=== PATIENT | female | born 1990 | race Caucasian/White ===

== ENCOUNTER 2019-01-01 13:48 | Outpatient (CLI) | payer OTHER | END 2019-01-01 13:49 | disposition home or self-care (01) | LOC: DTY/OP 13:48 | PROVIDERS: ATTEND Specialist | DX: Z01.818 Encounter for other preprocedural examination (principal); E66.01 Morbid (severe) obesity due to excess calories | CPT/HCPCS: 97802 ==

== ENCOUNTER 2019-03-04 19:30 | Outpatient (CLI) | payer OTHER | END 2019-03-04 19:31 | disposition home or self-care (01) | LOC: SLEEPLAB 19:30 | DX: G47.33 Obstructive sleep apnea (adult) (pediatric) (principal); R06.83 Snoring; G47.00 Insomnia, unspecified; G47.10 Hypersomnia, unspecified | CPT/HCPCS: 95810 ==

== ENCOUNTER 2019-04-16 12:24 | Outpatient (CLI) | payer OTHER ==
[2019-04-16 13:54] LABS: BHCG - Serum Negative (NEGATIVE); Pregs Control Background? CLEAR/WHITE (CLR/WHITE); Pregs Control Bar Appear? YES (CONTROL BAR)
== END 2019-04-16 12:25 | disposition home or self-care (01) ==
LOC: LABBT 12:24
PROVIDERS: ATTEND Specialist
DX: Z01.812 Encounter for preprocedural laboratory examination (principal); E66.01 Morbid (severe) obesity due to excess calories
CPT/HCPCS: 84703

== ENCOUNTER 2019-04-18 14:00 | Inpatient (IN) | payer OTHER ==
--- NOTE | 2019-04-18 12:57 | HP ---
ADDENDUM: This is an addendum to a history and physical, number is [id number], dictated 09/13/2018. Lalitha Russ was seen in office on 09/13/2018 initiating bariatric evaluation. Plan is for laparoscopic Byron-en-Y gastric bypass. She has attended our bariatric seminar, visited our dietitian as well as psychologist, thought to be a good candidate with good expectations and committed postop to follow up to ensure optimal results. Comorbidities include elevated cholesterol, chronic pain, headaches, GERD. She notes that almost she has lost with nonoperative weight loss program of 16 pounds and current weight initially seen in August was 290 pounds, BMI 54. She has lost 20 pounds in her preoperative assessment. She has met all other requirements of the program including psychology evaluation. The patient has upper GI, EKG, cardiac clearance and labs, all of which were normal. She has been adherent with the preoperative preparation. She understands risks of infection, bleeding, and reoperation, and consents. PAST MEDICAL HISTORY: Anxiety, elevated cholesterol, chronic pain, headaches, bladder incontinence occasionally, obesity, GERD, sciatica, sleep apnea. PAST SURGICAL HISTORY: Lap cholecystectomy at 26 years of age. FAMILY HISTORY: Noncontributory. SOCIAL HISTORY: Tobacco cessation in 2016, half pack a day prior to that, alcohol rarely. REVIEW OF SYSTEMS: Ten-point noncontributory. PHYSICAL EXAMINATION: VITAL SIGNS: Weight 264 pounds, height 5 feet, BMI 51, preoperatively 9.9% of weight loss. LUNGS: Clear to auscultation. NEUROLOGIC: Intact, no deficit. CARDIAC: Regular rate and rhythm without murmur or gallop. ABDOMEN: Soft, obese, nontender. No hernias. EXTREMITIES: Unremarkable. No edema. Good palpable pulses. LYMPH: No lymphadenopathy in neck, axilla, or groins. ASSESSMENT: Morbid obesity, sleep apnea, reflux. PLAN: Laparoscopic Byron-en-Y gastric bypass. She understands risks, benefits, and consents. She does report that she has benign positional vertigo and wants to try to minimize her chances of waking up supine, wants to wake up with her head elevated. She will discuss it with her Anesthesia. Job ID: [id number]
[2019-04-24] MEDS ORDERED: Bupivacaine/Epinephrine 0.25% 30 ML VIAL ONE (06:46)
[2019-04-24] MEDS ORDERED: Fentanyl 250 MCG/5 ML VIAL ONE (06:58)
[2019-04-24] MEDS ORDERED: Heparin 5,000 UNITS/ML VIAL ONE (07:21)
[2019-04-24] MEDS ORDERED: Ketorolac Tromethamine 30 MG/ML VIAL ONE ×2 (07:21→13:19)
[2019-04-24] MEDS ORDERED: cefOXitin 2 GM VIAL ONE (07:30)
[2019-04-24] MEDS ORDERED: Scopolamine 1.5 mg/72 hour Patch ONE (07:30)
[2019-04-24] MEDS ORDERED: Sodium Chloride 0.9% 100 ML ONE (07:30)
[2019-04-24] MEDS ORDERED: hydrALAZINE 20 MG/ML VIAL SLOW IVP PRN (10:13)
[2019-04-24] MEDS ORDERED: Hydrocodone-Acetamin 15 ML UDCUP PO PRN (10:13)
[2019-04-24] MEDS ORDERED: Morphine 4 MG/ML VIAL SLOW IVP PRN (10:13)
[2019-04-24] MEDS ORDERED: Ondansetron PF 4 MG/2 ML Vial IVP PRN (10:13)
[2019-04-24] MEDS ORDERED: diphenhydrAMINE 50 MG/ML VIAL IVP PRN (10:13)
[2019-04-24] MEDS ORDERED: Lorazepam 2 MG/ML VIAL SLOW IVP PRN (10:18)
[2019-04-24] MEDS ORDERED: Morphine 2 MG/ML SYRINGE SLOW IVP PRN (10:27)
[2019-04-24] MEDS ORDERED: Promethazine HCl 25 MG/ML VIAL ONE (11:07)
[2019-04-24] MEDS ORDERED: Fentanyl 100 MCG/2 ML VIAL ONE ×3 (11:07→13:19)
[2019-04-24] MEDS ORDERED: Meperidine HCl/PF 25 MG/ML VIAL ONE (12:06)
[2019-04-24] MEDS ORDERED: Morphine 4 MG/ML VIAL ONE (12:53)
[2019-04-24] MEDS: Acetaminophen 1,000 MG in Premix Bag 1 BAG IVPB SCH ×3 (15:14→22:38)
[2019-04-24] MEDS: Ketorolac Tromethamine 30 MG/ML VIAL IVP SCH ×2 (15:14→17:47)
[2019-04-24] MEDS ORDERED: Succinylcholine Chloride 20 MG/ML 10 ml SYRINGE FS ONE (16:21)
[2019-04-24] MEDS ORDERED: Lidocaine 1% PF 5 ML VIAL ONE (16:21)
[2019-04-24] MEDS ORDERED: Dexamethasone 20 MG/5 ML VIAL ONE (16:21)
[2019-04-24] MEDS ORDERED: Glycopyrrolate 0.2 MG/ML 5 ML SYRINGE ONE (16:21)
[2019-04-24] MEDS ORDERED: Ondansetron PF 4 MG/2 ML Vial ONE (16:21)
[2019-04-24] MEDS ORDERED: PROPOFOL 200 MG/20 ML VIAL ONE (16:21)
[2019-04-24] MEDS ORDERED: Vecuronium 10 MG VIAL ONE (16:21)
[2019-04-24 16:55] VITALS: BMI 53.1
[2019-04-24] MEDS ORDERED: diphenhydrAMINE 25 MG CAP PO PRN (16:58)
[2019-04-24] MEDS ORDERED: fentaNYL Citrate/PF 2,000 MCG in Sodium Chloride 0.9% 60 ML IV PRN (16:58)
[2019-04-24] MEDS ORDERED: Promethazine HCl 25 MG/ML VIAL IM PRN (16:58)
[2019-04-24] MEDS ORDERED: Zolpidem Tartrate 5 MG TAB PO PRN (16:58)
[2019-04-24] MEDS ORDERED: diphenhydrAMINE 50 MG/ML VIAL IM/IV PRN (16:58)
[2019-04-24] MEDS ORDERED: Naloxone HCl 0.4 mg/ml Vial IV PRN (16:58)
--- NOTE | 2019-04-24 17:07 | OP ---
DATE OF PROCEDURE: 04/24/2019 PREOPERATIVE DIAGNOSES: Morbid obesity, 280 pounds, 54 BMI, elevated cholesterol, gastroesophageal reflux disease, foreign body in chest. MEDICATIONS: 1. Amitriptyline. 2. Cyclobenzaprine. 3. . POSTOPERATIVE DIAGNOSES: Morbid obesity, 280 pounds, 54 BMI, elevated cholesterol, gastroesophageal reflux disease, foreign body in chest. PROCEDURES PERFORMED: Laparoscopic Byron-en-Y gastric bypass, 150 cm Byron limb antecolic, 25 mm EEA stapler gastrojejunostomy. Gastrojejunostomy anastomosis checked under water without leak. Removal of foreign body chest through a 2 cm incision later closure. ANESTHESIA: General, local 0.25% Marcaine with epinephrine, 60 mL. TREE FALLER: Dr. Lees. DESCRIPTION OF PROCEDURE: The patient was taken to the operating room, where under general anesthesia, abdomen was prepared with ChloraPrep and draped in routine fashion. Local anesthetic was infiltrated in the skin and subcutaneous tissue about all port sites. Supraumbilical incision was made. Pneumoperitoneum to 15 mmHg obtained with a Veress needle, replaced with a 5 port. Video laparoscope inserted. Left and right midclavicular upper abdominal incision was made, and a 15 port was placed on the left and a 12 port was placed on the right. Bilateral far lateral stab incision was made, and 5 port was placed. During the procedure, a second 5 port placed in the left lower mid abdomen laterally. A subxiphoid incision made, and Valeria liver tractor was placed and reflected in the left lobe of the liver anteriorly, held in place with Mik's arms. Omentum was split toward the transverse colon using the LigaSure. It was reflected cephalad. Ligament of Treitz identified an approximately 60 cm from the ligament of Treitz. Small bowel adjacent to mesentery divided with 2 fires of the FRIDA 60 load stapler. Staple line disrupted. Hemostasis was gained with cautery. Byron limb devascularized about 4 cm. 150 cm Byron limb identified, measured and jejunojejunostomy form with a single fire of the 60 mm white load stapler after creating enterotomies in the biliary and Byron limb. The common enterotomy was closed with 2 fires of the FRIDA white load stapler. Mesenteric defect was closed with [id number] sutures of 3-0 Vicryl closing the mesenteric defect. Byron limb was then measured out and reflected cephalad. The patient was placed in reverse Trendelenburg. The angle of His laterally was cleared of peritoneal attachments. The 4 cm pouch identified along the lesser curvature and along the lesser curvature, the lesser sac entered dissected free using the LigaSure for hemostasis. All instrumentations were removed from the stomach. A single fire of the blue load stapler horizontally crossed the gastric pouch fired. The defect made in the stomach just inferiorly and laterally, and a 25 mm EEA anvil placed laparoscopically, directed into the gastric pouch and then the opening made just anterior to the initially fired blue load staple line in gastric pouch using the cutting current hook cautery. Once this was performed, a 5-mm band passer was advanced out of this defect adjacent to the staple line, and sutures removed and passes removed and anvil brought out through the stomach, well oriented and well position. Gastrotomy was closed with 2 fires of the FRIDA blue load stapler. The stomach pouch was then partition vertically left lateral to angle of His, serial fires of the blue load stapler. Once this was completed, stomach was completely divided. The Byron limb defect was created and the post removed from the anvil and the 25 mm EEA stapler placed with a 15 mm port site left midclavicular and advanced into the Byron limb. Antimesenteric for the post was advanced, visualized laparoscopically and then mated to the anvil in the stomach. These were approximated, well oriented and fired and then staple removed noting intact donuts. The vascularized Byron limb segment was then removed with 2 fires of the FRIDA white load stapler, removing the small segment of bowel. The gastrojejunostomy anastomosis reinforced with 3 interrupted Lembert sutures of 3-0 Vicryl seromuscular between the jejunum and stomach, left posterolateral, right posterolateral, and right anterolateral. Anastomosis was checked under water and noted to be intact without leak under water. Irrigant evacuated. There was some bleeding near the Byron limb staple line and mesentery controlled with clips and Uma. [id number] suture of 0 Vicryl was placed at the 15 mm port site, visualized laparoscopically with a GraNee needle. Abdominal cavity was irrigated. Valeria liver tractor was removed. All instruments were removed. All skin incisions were approximated with a subdermal 4-0 Monocryl and [place] glue applied. Chest was prepared with ChloraPrep, draped in routine fashion. Incision was made elliptically excising the foreign body from the piercing, closing the wound with 3-0 Monocryl, 4-0 Monocryl, and Dermabond. Local anesthetic was infiltrated. The patient tolerated the procedure well. Job ID: [id number]
[2019-04-24] MEDS: D5 1/2 NS w/20 mEq KCL 1,000 ML IV SCH ×2 (17:46→21:15)
[2019-04-24 19:31] LABS: #Lymphocytes 1.2 thou/uL (1.20-3.40); #Monocytes 0.4 thou/uL (0.11-0.59); #Neutrophils 9.6 thou/uL (1.40-6.50); %Lymphocytes 10.6 % (21.0-51.0); %Monocytes 3.2 % (0.0-10.0); %Neutrophils 86.2 % (42.0-75.0); Hemoglobin 12.1 g/dL (12.0-16.0); Mean Corpuscular HGB CONC 34.9 g/dL (32.0-36.0); Mean Platelet Volume 6.3 fL (7.4-10.4); Platelet Count 243 thou/uL (130-400); RBC Distribution Width 12.4 % (11.5-14.5); Red Blood Cell (RBC) Count 4.03 mill/uL (4.20-5.40); White Blood Cell (WBC) Count 11.1 thou/uL (4.8-10.8)
[2019-04-24] MEDS ORDERED: Enoxaparin Sodium 40 MG/0.4 ML SYRINGE SC SCH (21:00)
[2019-04-24] MEDS: Ondansetron PF 4 MG/2 ML Vial IVP PRN (22:41)
[2019-04-25] MEDS: Ketorolac Tromethamine 30 MG/ML VIAL IVP SCH ×4 (00:07→12:30)
[2019-04-25] MEDS: D5 1/2 NS w/20 mEq KCL 1,000 ML IV SCH ×2 (02:09→12:26)
[2019-04-25] MEDS: Acetaminophen 1,000 MG in Premix Bag 1 BAG IVPB SCH (04:45)
[2019-04-25] MEDS: Ondansetron PF 4 MG/2 ML Vial IVP PRN (04:45)
[2019-04-25 05:09] LABS: #Lymphocytes 2.6 thou/uL (1.20-3.40); #Monocytes 0.6 thou/uL (0.11-0.59); #Neutrophils 7.7 thou/uL (1.40-6.50); %Basophils 0.1 % (0.0-1.0); %Eosinophils 0.3 % (0.0-10.0); %Lymphocytes 23.4 % (21.0-51.0); %Monocytes 5.6 % (0.0-10.0); %Neutrophils 70.5 % (42.0-75.0); Hemoglobin 12.1 g/dL (12.0-16.0); Mean Corpuscular HGB CONC 32.9 g/dL (32.0-36.0); Mean Corpuscular Hemoglobin 28.6 pg (27.0-31.0); Mean Corpuscular Volume 86.9 fL (78.0-98.0); Mean Platelet Volume 6.5 fL (7.4-10.4); Platelet Count 301 thou/uL (130-400); RBC Distribution Width 12.6 % (11.5-14.5); Red Blood Cell (RBC) Count 4.24 mill/uL (4.20-5.40); White Blood Cell (WBC) Count 10.9 thou/uL (4.8-10.8)
[2019-04-25 05:27] LABS: Anion Gap 10 mmol/L (10-20); BUN (Urea Nitrogen) 6 mg/dL (7.0-18.7); Calc. Creatinine Clearance 232 mL/min (70-130); Calcium 8.7 mg/dL (7.8-10.44); Carbon Dioxide 23 mmol/L (22-29); Chloride 105 mmol/L (98-107); Estimated GFR-MDRD Greater than 90; Glucose 106 mg/dL (70-105); Potassium 3.4 mmol/L (3.5-5.1); Sodium 135 mmol/L (136-145)
[2019-04-25] MEDS ORDERED: Pantoprazole 40 MG VIAL IVP SCH (09:00)
[2019-04-25] MEDS ORDERED: Acetaminophen 650 MG/20.3 ML UDCUP PO PRN (10:20)
[2019-04-25] MEDS ORDERED: Hydrocodone-Acetamin 15 ML UDCUP PO PRN (10:24)
[2019-04-25] MEDS ORDERED: Aspirin/APAP/Caffeine Tab (Excedrin Migraine) PO SCH (10:30)
[2019-04-25] MEDS ORDERED: Lorazepam 1 MG TAB PO PRN (11:11)
[2019-04-25] MEDS ORDERED: Citalopram 20 MG TAB PO SCH (11:15)
[2019-04-25] MEDS: Lorazepam 2 MG/ML VIAL SLOW IVP SCH ×2 (11:22→12:20)
[2019-04-25 11:59] VITALS: BP 111/65; TEMP 97.8
--- NOTE | 2019-04-25 22:50 | DIS ---
DATE OF ADMISSION: 04/24/2019 DATE OF DISCHARGE: 04/25/2019 HOSPITAL COURSE: Lalitha Russ is a 29-year-old female with morbid obesity, 264 pounds, BMI 51, history of significant reflux, anxiety and depression, headaches, migraines, sciatica, sleep apnea. She has been through our bariatric program protocol, evaluated by dietitian, cardiac clearance, Cheryl. Given that, the patient quit smoking in 2015. On the day of surgery, she underwent under general anesthesia laparoscopic Byron-en-Y gastric bypass, 150 cm Byron limb antecolic, 25 mm EEA stapler. On presentation preoperatively, her heart rate was 100 to 105 due to her anxiety. Postoperatively, her pain required a MACHINE PECAN PICKER. She tolerated ice chips initially, then liquids this morning. This morning, her white count is 10.9, hemoglobin 12. Basic metabolic profile normal. MACHINE PECAN PICKER discontinued this morning. Analgesia controlled with Lortab Elixir. She is tolerating her bariatric clear liquids. PHYSICAL EXAMINATION: LUNGS: Clear to auscultation. CARDIAC: Regular rate and rhythm. Slight tachycardia. She presented preoperatively. ABDOMEN: Soft, nontender. Good bowel sounds. Surgical wounds look good. DISCHARGE INSTRUCTIONS: At this point, she is being discharged home. She is given Lortab Elixir to take as needed . She is to resume her home medications, Flexeril, Celexa, and amitriptyline. She will avoid NSAIDs. She will see me in office in 1 to 2 weeks per appointment. She is encouraged to be ambulatory. There is no lifting restriction. She will follow the bariatric diet advancement protocol, will be on bariatric liquids for 2 weeks, pureed for 2 weeks, and soft diet after that. Job ID: [id number]
[2019-04-26] MEDS ORDERED: Citalopram 20 MG TAB PO SCH (09:00)
== END 2019-04-25 13:59 | disposition home or self-care (01) | DRG 621 ==
LOC: SURG A 04-24 05:55 → SJJU 04-24 13:06
PROVIDERS: ADMIT Specialist; ATTEND Specialist
PROC: 0D164ZA Bypass Stomach to Jejunum, Percutaneous Endoscopic Approach (ICD-10-PCS; principal; 2019-04-24)
PROC: 0HC5XZZ Extirpation of Matter from Chest Skin, External Approach (ICD-10-PCS; 2019-04-24)
DX: E66.01 Morbid (severe) obesity due to excess calories (principal); F41.9 Anxiety disorder, unspecified; K21.9 Gastro-esophageal reflux disease without esophagitis; E78.00 Pure hypercholesterolemia, unspecified; G47.00 Insomnia, unspecified; F17.220 Nicotine dependence, chewing tobacco, uncomplicated; Z68.43 Body mass index [BMI] 50.0-59.9, adult; G43.909 Migraine, unspecified, not intractable, without status migrainosus; F32.9 Major depressive disorder, single episode, unspecified; S20.359A Superficial foreign body of unspecified front wall of thorax, initial encounter; X58.XXXA Exposure to other specified factors, initial encounter
CPT/HCPCS: 36415; 80048; 85025; 86850; 86900; 86901; 94760; C9113; J0131; J0694; J1100; J1644; J1650; J1885; J2001; J2060; J2175; J2270; J2405; J2550; J2704; J3010; J3490

== ENCOUNTER 2019-05-01 08:56 | Emergency (ER) | payer OTHER ==
[2019-05-01 10:16] LABS: #Eosinphils 0.1 thou/uL (0.0-0.7); #Lymphocytes 2.3 thou/uL (1.20-3.40); #Monocytes 0.3 thou/uL (0.11-0.59); #Neutrophils 3.7 thou/uL (1.40-6.50); %Basophils 0.5 % (0.0-1.0); %Eosinophils 2.3 % (0.0-10.0); %Lymphocytes 35.7 % (21.0-51.0); %Monocytes 5.1 % (0.0-10.0); %Neutrophils 56.4 % (42.0-75.0); Hemoglobin 12.9 g/dL (12.0-16.0); Mean Corpuscular HGB CONC 34.7 g/dL (32.0-36.0); Mean Corpuscular Hemoglobin 29.9 pg (27.0-31.0); Mean Corpuscular Volume 86.1 fL (78.0-98.0); Platelet Count 353 thou/uL (130-400); RBC Distribution Width 12.3 % (11.5-14.5); White Blood Cell (WBC) Count 6.5 thou/uL (4.8-10.8)
[2019-05-01 10:18] LABS: BHCG - Serum Negative (NEGATIVE); Pregs Control Background? CLEAR/WHITE (CLR/WHITE); Pregs Control Bar Appear? YES (CONTROL BAR)
[2019-05-01 10:33] LABS: ALT (SGPT) 25 U/L (8-55); AST (SGOT) 25 U/L (5-34); Albumin 4.2 g/dL (3.5-5.0); Alkaline Phosphatase 71 U/L (40-150); Anion Gap 13 mmol/L (10-20); BUN (Urea Nitrogen) 10 mg/dL (7.0-18.7); Bilirubin, Total 0.5 mg/dL (0.2-1.2); Calc. Creatinine Clearance 0 mL/min (70-130); Calcium 9.7 mg/dL (7.8-10.44); Carbon Dioxide 25 mmol/L (22-29); Chloride 103 mmol/L (98-107); Estimated GFR-MDRD Greater than 90; Globulin 3.8 g/dL (2.4-3.5); Glucose 87 mg/dL (70-105); Lipase 36 U/L (8-78); Potassium 3.7 mmol/L (3.5-5.1); Sodium 137 mmol/L (136-145)
--- NOTE | 2019-05-01 10:53 | CT ---
CT Abdomen Pelvis W Con: 05/01/2019 9:19 AM CLINICAL INFORMATION: Abdominal pain status post gastric bypass surgery last Monday COMPARISON: 08/30/2018 TECHNIQUE: Multiple contiguous axial images were obtained and a CT of the abdomen and pelvis with IV contrast. C oronal reformats were performed. FINDINGS: Lower Chest: within normal limits. Abdomen: Liver: within normal limits. Bile Ducts: Normal caliber. Gallbladder: Status post cystectomy. Pancreas: within normal limits. Spleen: within normal limits. Adrenals: within normal limits. Kidneys: within normal limits. Pelvis: Reproductive Organs: IUD seen in the uterus. The patient has a genital piercing. Ureters: within normal limits. Bladder: within normal limits. Peritoneum: No ascites or free air, no fluid collection. Bowel: Normal caliber. Postsurgical changes from gastric bypass are seen. Mesentery and Retroperitoneum: No enlarged mesenteric or retroperitoneal lymph nodes. Vessels: Normal. Abdominal Wall: Stranding is seen in the anterior abdominal wall from recent surgery. Bones: Within normal limits IMPRESSION: Recent postsurgical changes without acute intra-abdominal /pelvic abnormality.
[2019-05-01 11:13] LABS: Bacteria/HPF None Seen HPF (None Seen); Bilirubin Negative (Negative); Blood, Urine 3+ (Negative); Clarity Clear (Clear); Glucose, Urine (Dipstick) Normal (Negative); Leukocyte Negative Leu/uL (Negative); Nitrite Negative (Negative); Protein, Urine (Dipstick) 20 mg/dL (Neg-Trace); RBC/HPF Greater than 50 HPF (0-3); Squamous Epithelial 0-3 HPF (0-3); Urobilinogen 3 mg/dL (Less than 2); WBC/HPF 0-3 HPF (0-3)
[2019-05-01] MEDS ORDERED: ISOVUE-370 76%-LOCM 1 ML ONE (16:38)
== END 2019-05-01 12:18 | disposition home or self-care (01) ==
LOC: ERS 08:56
DX: R10.12 Left upper quadrant pain (principal); G43.909 Migraine, unspecified, not intractable, without status migrainosus; F41.9 Anxiety disorder, unspecified; Z79.899 Other long term (current) drug therapy; Z98.890 Other specified postprocedural states
CPT/HCPCS: 74177; 80053; 81003; 81015; 83690; 84703; 85025; Q9966

== ENCOUNTER 2019-06-16 18:17 | Emergency (ER) | payer OTHER ==
[2019-06-16 19:45] LABS: Bacteria/HPF None Seen HPF (None Seen); Bilirubin Negative (Negative); Blood, Urine Negative (Negative); Clarity Clear (Clear); Glucose, Urine (Dipstick) Normal (Negative); Leukocyte Negative Leu/uL (Negative); Mucous/LPF 2+ LPF (<2+); Nitrite Negative (Negative); Pregnancy Test - Urine (BHCG) Negative (Negative); Pregu Control Background? CLEAR/WHITE (CLR/WHITE); Pregu Control Bar Appear? YES (CONTROL BAR); Protein, Urine (Dipstick) 30 mg/dL (Neg-Trace); RBC/HPF 0-3 HPF (0-3); Squamous Epithelial 0-3 HPF (0-3); WBC/HPF 0-3 HPF (0-3)
== END 2019-06-16 20:00 | disposition home or self-care (01) ==
LOC: ERS 18:17
DX: R30.0 Dysuria (principal); G43.909 Migraine, unspecified, not intractable, without status migrainosus; F41.9 Anxiety disorder, unspecified; Z79.899 Other long term (current) drug therapy; E66.9 Obesity, unspecified
CPT/HCPCS: 81003; 81015; 81025; 87086; 99283

== ENCOUNTER 2019-10-17 17:29 | Emergency (ER) | payer OTHER ==
[2019-10-17 18:43] LABS: #Basophils 0.1 thou/uL (0.0-0.2); #Eosinphils 0.1 thou/uL (0.0-0.7); #Lymphocytes 3.2 thou/uL (1.20-3.40); #Monocytes 0.4 thou/uL (0.11-0.59); #Neutrophils 3.5 thou/uL (1.40-6.50); %Basophils 1.1 % (0.0-1.0); %Eosinophils 1.7 % (0.0-10.0); %Monocytes 5.3 % (0.0-10.0); %Neutrophils 47.9 % (42.0-75.0); Hemoglobin 12.6 g/dL (12.0-16.0); Mean Corpuscular HGB CONC 34.3 g/dL (32.0-36.0); Mean Corpuscular Hemoglobin 31.4 pg (27.0-31.0); Mean Corpuscular Volume 91.5 fL (78.0-98.0); Mean Platelet Volume 7.1 fL (7.4-10.4); Platelet Count 265 thou/uL (130-400); RBC Distribution Width 12.7 % (11.5-14.5); Red Blood Cell (RBC) Count 4.01 mill/uL (4.20-5.40); White Blood Cell (WBC) Count 7.2 thou/uL (4.8-10.8)
[2019-10-17 19:07] LABS: ALT (SGPT) 22 U/L (8-55); AST (SGOT) 20 U/L (5-34); Albumin 4.2 g/dL (3.5-5.0); Alkaline Phosphatase 84 U/L (40-110); Anion Gap 12 mmol/L (10-20); BUN (Urea Nitrogen) 12 mg/dL (7.0-18.7); Bilirubin, Total 0.4 mg/dL (0.2-1.2); Calc. Creatinine Clearance 0 mL/min (70-130); Calcium 9.2 mg/dL (7.8-10.44); Carbon Dioxide 25 mmol/L (22-29); Chloride 109 mmol/L (98-107); Estimated GFR-MDRD Greater than 90; Globulin 2.9 g/dL (2.4-3.5); Glucose 88 mg/dL (70-105); Potassium 3.5 mmol/L (3.5-5.1); Protein, Total 7.1 g/dL (6.0-8.3); Sodium 142 mmol/L (136-145)
[2019-10-17] MEDS ORDERED: Acetaminophen 500 MG TAB ONE (19:35)
[2019-10-17 20:01] LABS: Bilirubin Negative (Negative); Blood, Urine Negative (Negative); Clarity Clear (Clear); Glucose, Urine (Dipstick) Normal (Negative); Leukocyte Negative Leu/uL (Negative); Nitrite Negative (Negative); Protein, Urine (Dipstick) 20 mg/dL (Neg-Trace)
[2019-10-17 20:02] LABS: Pregnancy Test - Urine (BHCG) Negative (Negative); Pregu Control Background? CLEAR/WHITE (CLR/WHITE); Pregu Control Bar Appear? YES (CONTROL BAR); Specific Gravity 1.033 (1.002-1.036)
--- NOTE | 2019-10-17 20:49 | CT ---
CT ABDOMEN AND PELVIS WITHOUT CONTRAST: 10/17/19 HISTORY: 29-year-old female with left flank pain. Comparison 08/30/18 and 10/01/18. The lung bases are clear. There are postop changes of gastric bypass surgery and cholecystectomy. Absence of oral and IV contrast reduces the sensitivity of the exam particularly for evaluation of so lid organs and bowel. No free air or free fluid is seen in the abdomen or pelvis. No calculi is seen in the kidneys, ureter s, or the urinary bladder. No hydroureteronephrosis noted on either side. A normal appearing appendix is present. There is a small fat containing umbilical hernia. There is an IUD. There are bilateral pars articularis defects at L5 with grade I anterolisthesis of L5 over S1. IMPRESSION: No CT evidence of urinary tract calculi or obstruction. POS: OFF
== END 2019-10-17 21:49 | disposition home or self-care (01) ==
LOC: ERS 17:29
DX: R10.9 Unspecified abdominal pain (principal); E66.9 Obesity, unspecified; F41.9 Anxiety disorder, unspecified; Z79.899 Other long term (current) drug therapy
CPT/HCPCS: 36415; 74176; 80053; 81003; 81025; 83690; 85025

== ENCOUNTER 2021-01-31 20:43 | Emergency (ER) | payer OTHER ==
[2021-01-31 22:41] LABS: #Basophils 0.1 thou/uL (0.0-0.2); #Eosinphils 0.1 thou/uL (0.0-0.7); #Lymphocytes 2.2 thou/uL (1.20-3.40); #Monocytes 0.8 thou/uL (0.11-0.59); #Neutrophils 3.4 thou/uL (1.40-6.50); %Basophils 0.9 % (0.0-1.0); %Eosinophils 0.8 % (0.0-10.0); %Lymphocytes 33.7 % (21.0-51.0); %Monocytes 11.6 % (0.0-10.0); Hemoglobin 13.2 g/dL (12.0-16.0); Mean Corpuscular HGB CONC 35.2 g/dL (32.0-36.0); Mean Corpuscular Hemoglobin 31.7 pg (27.0-31.0); Mean Corpuscular Volume 90.2 fL (78.0-98.0); Mean Platelet Volume 6.7 fL (7.4-10.4); Platelet Count 237 thou/uL (130-400); RBC Distribution Width 11.6 % (11.5-14.5); Red Blood Cell (RBC) Count 4.15 mill/uL (4.20-5.40); White Blood Cell (WBC) Count 6.5 thou/uL (4.8-10.8)
[2021-01-31 22:44] LABS: Bilirubin Negative (Negative); Blood, Urine Negative (Negative); Glucose, Urine (Dipstick) Negative (Negative); Ketone, Urine 15 mg/dL (Negative); Leukocyte Negative (Negative); Nitrite Negative (Negative); Protein, Urine (Dipstick) Negative (Neg-Trace); Urobilinogen 0.2 mg/dL (Less than 2)
[2021-01-31 22:45] LABS: Clarity Clear (Clear); Specific Gravity, Urine 1.022 (1.002-1.036)
[2021-01-31 23:01] LABS: ALT (SGPT) 15 U/L (8-55); AST (SGOT) 17 U/L (5-34); Albumin 3.3 g/dL (3.5-5.0); Alkaline Phosphatase 58 U/L (40-110); Anion Gap 12 mmol/L (10-20); BUN (Urea Nitrogen) 8 mg/dL (7.0-18.7); Bilirubin, Total 0.4 mg/dL (0.2-1.2); Calc. Creatinine Clearance 0 mL/min (70-130); Calcium 8.1 mg/dL (7.8-10.44); Carbon Dioxide 21 mmol/L (22-29); Chloride 106 mmol/L (98-107); Globulin 2.3 g/dL (2.4-3.5); Glucose 88 mg/dL (70-105); Potassium 3.7 mmol/L (3.5-5.1); Protein, Total 5.6 g/dL (6.0-8.3); Sodium 135 mmol/L (136-145)
== END 2021-01-31 23:30 | disposition home or self-care (01) ==
LOC: ERS 20:43
DX: O20.0 Threatened abortion (principal)
CPT/HCPCS: 36415; 80053; 81003; 84702; 85025; 86850; 86900; 86901; 99284

== ENCOUNTER 2021-02-16 20:28 | Emergency (ER) | payer OTHER ==
[2021-02-16 21:01] LABS: #Eosinphils 0.1 thou/uL (0.0-0.7); #Lymphocytes 2.3 thou/uL (1.20-3.40); #Monocytes 0.4 thou/uL (0.11-0.59); #Neutrophils 3.9 thou/uL (1.40-6.50); %Basophils 0.3 % (0.0-1.0); %Eosinophils 1.2 % (0.0-10.0); %Lymphocytes 34.5 % (21.0-51.0); %Monocytes 5.7 % (0.0-10.0); %Neutrophils 58.4 % (42.0-75.0); Hemoglobin 11.7 g/dL (12.0-16.0); Mean Corpuscular HGB CONC 34.9 g/dL (32.0-36.0); Mean Corpuscular Hemoglobin 31.3 pg (27.0-31.0); Mean Corpuscular Volume 89.5 fL (78.0-98.0); Mean Platelet Volume 6.5 fL (7.4-10.4); Platelet Count 246 thou/uL (130-400); RBC Distribution Width 12.1 % (11.5-14.5); Red Blood Cell (RBC) Count 3.73 mill/uL (4.20-5.40); White Blood Cell (WBC) Count 6.6 thou/uL (4.8-10.8)
[2021-02-16 21:20] LABS: Anion Gap 7 mmol/L (10-20); BUN (Urea Nitrogen) 12 mg/dL (7.0-18.7); Calc. Creatinine Clearance 0 mL/min (70-130); Calcium 8.4 mg/dL (7.8-10.44); Carbon Dioxide 25 mmol/L (22-29); Chloride 105 mmol/L (98-107); Glucose 78 mg/dL (70-105); Potassium 3.3 mmol/L (3.5-5.1); Sodium 134 mmol/L (136-145)
[2021-02-16 21:40] LABS: Bilirubin Negative (Negative); Blood, Urine Negative (Negative); Clarity Clear (Clear); Glucose, Urine (Dipstick) Normal (Negative); Ketone, Urine Negative (Negative); Leukocyte Negative Leu/uL (Negative); Nitrite Negative (Negative); Protein, Urine (Dipstick) Negative (Neg-Trace); Specific Gravity, Urine 1.039 (1.002-1.036); Urobilinogen Normal mg/dL (Less than 2); pH, Urine 5.5 (5.0-9.0)
[2021-02-16] MEDS ORDERED: Potassium Chloride 20 MEQ TAB ONE (21:49)
== END 2021-02-16 21:44 | disposition home or self-care (01) ==
LOC: ERS 20:28
DX: O20.0 Threatened abortion (principal); Z3A.08 8 weeks gestation of pregnancy; O99.331 Smoking (tobacco) complicating pregnancy, first trimester; Z79.899 Other long term (current) drug therapy
CPT/HCPCS: 36415; 76856; 80048; 81003; 84702; 85025; 86900; 86901; 93976

== ENCOUNTER 2021-09-20 14:51 | Emergency (ER) | payer OTHER ==
[2021-09-20 15:20] LABS: #Eosinphils 0.1 thou/uL (0.0-0.7); #Lymphocytes 0.7 thou/uL (1.20-3.40); #Monocytes 0.4 thou/uL (0.11-0.59); #Neutrophils 6.1 thou/uL (1.40-6.50); %Basophils 0.1 % (0.0-1.0); %Eosinophils 0.8 % (0.0-10.0); %Lymphocytes 10.1 % (21.0-51.0); %Monocytes 5.8 % (0.0-10.0); %Neutrophils 83.1 % (42.0-75.0); Hemoglobin 10.6 g/dL (12.0-16.0); Mean Corpuscular HGB CONC 31.8 g/dL (32.0-36.0); Mean Corpuscular Hemoglobin 24.8 pg (27.0-31.0); Mean Corpuscular Volume 78.1 fL (78.0-98.0); Mean Platelet Volume 6.4 fL (7.4-10.4); Platelet Count 317 thou/uL (130-400); RBC Distribution Width 13.4 % (11.5-14.5); Red Blood Cell (RBC) Count 4.27 mill/uL (4.20-5.40); White Blood Cell (WBC) Count 7.4 thou/uL (4.8-10.8)
[2021-09-20 15:43] LABS: ALT (SGPT) 13 U/L (8-55); AST (SGOT) 15 U/L (5-34); Albumin 3.8 g/dL (3.5-5.0); Alkaline Phosphatase 85 U/L (40-110); Anion Gap 16 mmol/L (10-20); BUN (Urea Nitrogen) 12 mg/dL (7.0-18.7); Bilirubin, Total 0.5 mg/dL (0.2-1.2); Calc. Creatinine Clearance 0 mL/min (70-130); Carbon Dioxide 15 mmol/L (22-29); Chloride 106 mmol/L (98-107); Globulin 3.5 g/dL (2.4-3.5); Glucose 95 mg/dL (70-105); Potassium 3.4 mmol/L (3.5-5.1); Protein, Total 7.3 g/dL (6.0-8.3); Sodium 134 mmol/L (136-145)
[2021-09-20] MEDS ORDERED: Dexamethasone 10 MG/ML VIAL ONE (16:47)
[2021-09-21 12:56] LABS: SARS-CoV-2 PCR by NAA DETECTED (NotDetected)
== END 2021-09-20 17:02 | disposition home or self-care (01) ==
LOC: ERS 14:51
DX: U07.1 COVID-19 (principal); G43.909 Migraine, unspecified, not intractable, without status migrainosus; F17.290 Nicotine dependence, other tobacco product, uncomplicated
CPT/HCPCS: 36415; 80053; 85025; 87804; 99284; J1100; U0003; U0005

== ENCOUNTER 2021-11-23 17:42 | Inpatient (IN) | payer OTHER ==
[~2021-11-23 17:42] MED LIST: Iopamidol-370 76% 500 ML 1 ML ONE
[2021-11-23 18:12] LABS: #Lymphocytes 1.4 thou/uL (1.20-3.40); #Monocytes 0.4 thou/uL (0.11-0.59); #Neutrophils 4.3 thou/uL (1.40-6.50); %Basophils 0.1 % (0.0-1.0); %Eosinophils 0.5 % (0.0-10.0); %Lymphocytes 22.5 % (21.0-51.0); %Monocytes 6.4 % (0.0-10.0); %Neutrophils 70.5 % (42.0-75.0); Hemoglobin 8.5 g/dL (12.0-16.0); Mean Corpuscular HGB CONC 33.1 g/dL (32.0-36.0); Mean Corpuscular Hemoglobin 25.2 pg (27.0-31.0); Mean Corpuscular Volume 76.2 fL (78.0-98.0); Mean Platelet Volume 5.7 fL (7.4-10.4); Platelet Count 348 thou/uL (130-400); RBC Distribution Width 15.2 % (11.5-14.5); Red Blood Cell (RBC) Count 3.36 mill/uL (4.20-5.40)
[2021-11-23 18:26] LABS: BHCG - Serum Negative (NEGATIVE); Pregs Control Background? CLEAR/WHITE (CLR/WHITE); Pregs Control Bar Appear? YES (CONTROL BAR)
[2021-11-23 18:27] LABS: ALT (SGPT) 14 U/L (8-55); AST (SGOT) 24 U/L (5-34); Albumin 4.1 g/dL (3.5-5.0); Alkaline Phosphatase 117 U/L (40-110); Anion Gap 17 mmol/L (10-20); BUN (Urea Nitrogen) 7 mg/dL (7.0-18.7); Bilirubin, Total 0.4 mg/dL (0.2-1.2); Calc. Creatinine Clearance 0 mL/min (70-130); Carbon Dioxide 22 mmol/L (22-29); Chloride 105 mmol/L (98-107); Globulin 3.3 g/dL (2.4-3.5); Glucose 103 mg/dL (70-105); Lipase 39 U/L (8-78); Potassium 3.7 mmol/L (3.5-5.1); Protein, Total 7.4 g/dL (6.0-8.3); Sodium 140 mmol/L (136-145)
[2021-11-23] MEDS ORDERED: Morphine 4 MG/ML VIAL ONE ×2 (18:27→19:34)
[2021-11-23] MEDS ORDERED: Famotidine/PF 20 mg/2ml Vial ONE (18:27)
[2021-11-23] MEDS ORDERED: Sterile Water 10 ML ONE (18:27)
[2021-11-23] MEDS ORDERED: Ondansetron PF 4 MG/2 ML Vial ONE (18:27)
[2021-11-23] MEDS ORDERED: Pantoprazole 40 MG VIAL ONE (18:27)
[2021-11-23] MEDS ORDERED: Acetaminophen 325 MG TAB PO PRN (23:08)
[2021-11-23] MEDS ORDERED: Morphine 4 MG/ML VIAL SLOW IVP PRN (23:08)
[2021-11-23 23:52] LABS: SARS-CoV-2 NAA Rapid Test Not Detected (NotDetected)
[2021-11-24] MEDS ORDERED: Morphine 4 MG/ML VIAL ONE ×2 (00:58→06:09)
[2021-11-24] MEDS: Morphine 4 MG/ML VIAL SLOW IVP PRN ×4 (01:04→20:42)
[2021-11-24] MEDS ORDERED: Dextrose 5% in Water 1,000 ML IV PRN (10:12)
[2021-11-24] MEDS ORDERED: Dextrose 50% Abboject 50 ML SYRINGE SLOW IVP PRN (10:12)
[2021-11-24 10:45] VITALS: BMI 34.3
[2021-11-24 10:45] LABS: PTT 25.6 sec (22.9-36.1); Prothrombin Time 13.1 sec (12.0-14.7)
[2021-11-24 10:46] LABS: #Eosinphils 0.1 thou/uL (0.0-0.7); #Lymphocytes 1.3 thou/uL (1.20-3.40); #Monocytes 0.3 thou/uL (0.11-0.59); #Neutrophils 1.7 thou/uL (1.40-6.50); %Basophils 0.4 % (0.0-1.0); %Eosinophils 1.9 % (0.0-10.0); %Lymphocytes 38.1 % (21.0-51.0); %Monocytes 9.5 % (0.0-10.0); %Neutrophils 50.2 % (42.0-75.0); Hemoglobin 7.1 g/dL (12.0-16.0); Mean Corpuscular HGB CONC 31.9 g/dL (32.0-36.0); Mean Corpuscular Hemoglobin 24.6 pg (27.0-31.0); Mean Corpuscular Volume 77.1 fL (78.0-98.0); Mean Platelet Volume 5.8 fL (7.4-10.4); Platelet Count 274 thou/uL (130-400); RBC Distribution Width 15.2 % (11.5-14.5); Red Blood Cell (RBC) Count 2.91 mill/uL (4.20-5.40); White Blood Cell (WBC) Count 3.3 thou/uL (4.8-10.8)
[2021-11-24] MEDS ORDERED: Fentanyl 100 MCG/2 ML VIAL ONE (12:53)
[2021-11-24] MEDS ORDERED: Midazolam HCl 2 mg/2 ml Vial ONE (12:53)
[2021-11-24] MEDS ORDERED: PROPOFOL 200 MG/20 ML VIAL ONE (13:23)
[2021-11-24] MEDS: Multivitamins, Adult 10 ML, Folic Acid 1 MG, Thiamine HCl 100 MG in Dextrose 5 %-0.45 %... IV SCH (14:38)
[2021-11-24] MEDS: Ondansetron PF 4 MG/2 ML Vial IVP PRN ×2 (14:42→20:58)
[2021-11-24] MEDS: D5 1/2 NS w/20 mEq KCL 1,000 ML IV SCH ×2 (17:31→21:10)
[2021-11-24] MEDS: Pantoprazole 40 MG VIAL IVP SCH (21:01)
[2021-11-24] MEDS: diphenhydrAMINE 25 MG CAP PO PRN (22:37)
[2021-11-24] MEDS: Hydrocodone-Acetamin 15 ML UDCUP PO PRN (22:38)
[2021-11-25] MEDS: Multivitamins, Adult 10 ML, Folic Acid 1 MG, Thiamine HCl 100 MG in Dextrose 5 %-0.45 %... IV SCH ×2 (00:37→15:11)
[2021-11-25] MEDS: Morphine 4 MG/ML VIAL SLOW IVP PRN ×2 (01:25→12:14)
[2021-11-25 02:01] LABS: Bacteria/HPF Rare-Few HPF (None Seen); Bilirubin Negative (Negative); Blood, Urine Negative (Negative); Clarity Clear (Clear); Glucose, Urine (Dipstick) Normal (Negative); Ketone, Urine Negative (Negative); Leukocyte Negative Leu/uL (Negative); Nitrite Negative (Negative); Protein, Urine (Dipstick) Negative (Neg-Trace); RBC/HPF 0-3 HPF (0-3); Specific Gravity, Urine 1.014 (1.002-1.036); Squamous Epithelial 0-3 HPF (0-3); Urobilinogen Normal mg/dL (Less than 2); WBC/HPF 0-3 HPF (0-3)
[2021-11-25] MEDS: D5 1/2 NS w/20 mEq KCL 1,000 ML IV SCH ×2 (04:36→16:38)
[2021-11-25 05:41] LABS: #Eosinphils 0.1 thou/uL (0.0-0.7); #Monocytes 0.4 thou/uL (0.11-0.59); #Neutrophils 1.9 thou/uL (1.40-6.50); %Basophils 0.9 % (0.0-1.0); %Eosinophils 2.9 % (0.0-10.0); %Lymphocytes 45.7 % (21.0-51.0); %Monocytes 7.9 % (0.0-10.0); %Neutrophils 42.6 % (42.0-75.0); Mean Corpuscular HGB CONC 31.8 g/dL (32.0-36.0); Mean Corpuscular Hemoglobin 24.9 pg (27.0-31.0); Mean Corpuscular Volume 78.3 fL (78.0-98.0); Mean Platelet Volume 5.9 fL (7.4-10.4); Platelet Count 269 thou/uL (130-400); RBC Distribution Width 14.9 % (11.5-14.5); Red Blood Cell (RBC) Count 2.82 mill/uL (4.20-5.40); White Blood Cell (WBC) Count 4.4 thou/uL (4.8-10.8)
[2021-11-25 06:01] LABS: Anion Gap 10 mmol/L (10-20); BUN (Urea Nitrogen) 5 mg/dL (7.0-18.7); Calc. Creatinine Clearance 145 mL/min (70-130); Calcium 7.8 mg/dL (7.8-10.44); Carbon Dioxide 24 mmol/L (22-29); Chloride 109 mmol/L (98-107); Glucose 140 mg/dL (70-105); Potassium 4.1 mmol/L (3.5-5.1); Sodium 139 mmol/L (136-145)
[2021-11-25] MEDS: Hydrocodone-Acetamin 15 ML UDCUP PO PRN ×3 (07:52→21:11)
[2021-11-25] MEDS: Pantoprazole 40 MG VIAL IVP SCH (08:26)
[2021-11-25] MEDS: Ondansetron PF 4 MG/2 ML Vial IVP PRN (08:26)
[2021-11-25] MEDS ORDERED: traMADol HCl 50 MG TAB PO PRN (13:08)
[2021-11-25] MEDS ORDERED: Acetaminophen 500 MG TAB PO SCH (14:30)
[2021-11-25] MEDS ORDERED: Cyanocobalamin 1000 MCG/ML VIAL IM SCH (15:00)
[2021-11-25] MEDS ORDERED: Fluconazole In NaCl,Iso-Osm 200 MG in Premix Bag 1 BAG IVPB SCH (15:15)
[2021-11-25] MEDS: Lactated Ringer's 1,000 ML IV SCH ×2 (16:24→23:26)
[2021-11-25] MEDS: diphenhydrAMINE 25 MG CAP PO PRN ×2 (16:44→23:50)
[2021-11-25] MEDS ORDERED: Sucralfate 1 GM TAB PO SCH (17:00)
[2021-11-25] MEDS ORDERED: Dicyclomine 10 MG CAP PO PRN (18:25)
[2021-11-25] MEDS: Multivitamin W/ Minerals 1 TAB PO SCH (21:10)
[2021-11-25] MEDS: Acetaminophen 500 MG TAB PO PRN (21:11)
[2021-11-25] MEDS: Topiramate 25 MG TAB PO SCH (21:11)
[2021-11-25] MEDS: Sucralfate 1 GM/10 ML UDCUP PO SCH (23:44)
[2021-11-26] MEDS: Hydrocodone-Acetamin 15 ML UDCUP PO PRN ×2 (03:34→11:59)
[2021-11-26] MEDS: Lactated Ringer's 1,000 ML IV SCH (03:35)
[2021-11-26 05:14] LABS: #Eosinphils 0.1 thou/uL (0.0-0.7); #Lymphocytes 1.8 thou/uL (1.20-3.40); #Monocytes 0.3 thou/uL (0.11-0.59); #Neutrophils 2.1 thou/uL (1.40-6.50); %Basophils 0.8 % (0.0-1.0); %Lymphocytes 42.2 % (21.0-51.0); %Monocytes 7.5 % (0.0-10.0); %Neutrophils 47.5 % (42.0-75.0); Hemoglobin 7.2 g/dL (12.0-16.0); Mean Corpuscular HGB CONC 31.3 g/dL (32.0-36.0); Mean Corpuscular Hemoglobin 24.5 pg (27.0-31.0); Mean Corpuscular Volume 78.4 fL (78.0-98.0); Mean Platelet Volume 5.8 fL (7.4-10.4); Platelet Count 277 thou/uL (130-400); RBC Distribution Width 14.8 % (11.5-14.5); Red Blood Cell (RBC) Count 2.92 mill/uL (4.20-5.40); White Blood Cell (WBC) Count 4.3 thou/uL (4.8-10.8)
[2021-11-26] MEDS: Sucralfate 1 GM/10 ML UDCUP PO SCH ×3 (05:20→17:54)
[2021-11-26] MEDS: Topiramate 25 MG TAB PO SCH (08:16)
[2021-11-26] MEDS: Multivitamin W/ Minerals 1 TAB PO SCH (08:16)
[2021-11-26] MEDS ORDERED: Non-Formulary Item 1 EACH (Sertraline Hcl [Zoloft] 50 MG Tablet) PO SCH (09:00)
[2021-11-26] MEDS ORDERED: Thiamine 100 MG TAB PO SCH (09:00)
[2021-11-26] MEDS ORDERED: Fluconazole 100 MG TAB PO SCH (09:00)
[2021-11-26] MEDS: Ondansetron PF 4 MG/2 ML Vial IVP PRN (12:05)
[2021-11-26] MEDS ORDERED: diphenhydrAMINE 50 MG/ML VIAL IVP SCH (14:00)
[2021-11-26] MEDS ORDERED: Prochlorperazine 10 MG/2 ML VIAL IVP SCH (14:15)
[2021-11-26 16:19] VITALS: BP 105/58; TEMP 98
[2021-11-26] MEDS: Acetaminophen 500 MG TAB PO PRN (17:54)
[2021-11-26] MEDS: Multivitamins, Adult 10 ML, Folic Acid 1 MG, Thiamine HCl 100 MG in Dextrose 5 %-0.45 %... IV SCH (17:56)
[2021-11-26] MEDS ORDERED: Amitriptyline HCl 10 MG TAB PO SCH (21:00)
[2021-12-02] MEDS ORDERED: Topiramate 25 MG TAB PO SCH (09:00)
== END 2021-11-26 18:35 | disposition home or self-care (01) | DRG 378 ==
LOC: ERS 17:42 → ERHOLD 20:36 → INTOOBSV 20:36 → SURG A 11-24 08:44 → OBSVTOIN 11-25 18:07
PROVIDERS: ADMIT Specialist; ATTEND Specialist
PROC: 0DJ08ZZ Inspection of Upper Intestinal Tract, Via Natural or Artificial Opening Endoscopic (ICD-10-PCS; principal; 2021-11-24)
DX: K28.4 Chronic or unspecified gastrojejunal ulcer with hemorrhage (principal); D62 Acute posthemorrhagic anemia; Z20.822 Contact with and (suspected) exposure to COVID-19; E66.01 Morbid (severe) obesity due to excess calories; F17.290 Nicotine dependence, other tobacco product, uncomplicated; K21.00 Gastro-esophageal reflux disease with esophagitis, without bleeding; G43.909 Migraine, unspecified, not intractable, without status migrainosus; F41.9 Anxiety disorder, unspecified; E78.00 Pure hypercholesterolemia, unspecified; Z98.84 Bariatric surgery status; Z68.34 Body mass index [BMI] 34.0-34.9, adult; Z90.49 Acquired absence of other specified parts of digestive tract; Z79.899 Other long term (current) drug therapy; Z79.1 Long term (current) use of non-steroidal anti-inflammatories (NSAID)
CPT/HCPCS: 36415; 74177; 80048; 80053; 81001; 83690; 84703; 85025; 85610; 85730; 86850; 86900; 86901; 93005; 96374; 96375; 96376; C9113; G0378; J0780; J1200; J1450; J2250; J2270; J2405; J2704; J3010; J3411; J3480; J7042; J7120; Q9967; S0028; U0002

== ENCOUNTER 2021-12-22 21:21 | Emergency (ER) | payer OTHER ==
[2021-12-22 22:40] LABS: BHCG - Serum Negative (NEGATIVE); Pregs Control Background? CLEAR/WHITE (CLR/WHITE); Pregs Control Bar Appear? YES (CONTROL BAR)
[2021-12-22 22:42] LABS: Hemoglobin 8.2 g/dL (12.0-16.0); Mean Corpuscular HGB CONC 32.3 g/dL (32.0-36.0); Mean Corpuscular Hemoglobin 23.3 pg (27.0-31.0); Mean Corpuscular Volume 72.2 fL (78.0-98.0); Mean Platelet Volume 6.6 fL (7.4-10.4); Platelet Count 324 thou/uL (130-400); RBC Distribution Width 14.9 % (11.5-14.5); Red Blood Cell (RBC) Count 3.53 mill/uL (4.20-5.40); White Blood Cell (WBC) Count 5.1 thou/uL (4.8-10.8)
[2021-12-22 22:44] LABS: Bilirubin Negative (Negative); Blood, Urine Negative (Negative); Clarity Clear (Clear); Glucose, Urine (Dipstick) Normal (Negative); Ketone, Urine Negative (Negative); Leukocyte Negative Leu/uL (Negative); Nitrite Negative (Negative); Protein, Urine (Dipstick) Negative (Neg-Trace); Specific Gravity, Urine 1.002 (1.002-1.036); Urobilinogen Normal mg/dL (Less than 2); pH, Urine 6.5 (5.0-9.0)
[2021-12-22 22:50] LABS: ALT (SGPT) 14 U/L (8-55); AST (SGOT) 40 U/L (5-34); Albumin 3.7 g/dL (3.5-5.0); Alkaline Phosphatase 79 U/L (40-110); Anion Gap 15 mmol/L (10-20); BUN (Urea Nitrogen) 6 mg/dL (7.0-18.7); Bilirubin, Total 0.2 mg/dL (0.2-1.2); Calc. Creatinine Clearance 0 mL/min (70-130); Calcium 8.3 mg/dL (7.8-10.44); Carbon Dioxide 22 mmol/L (22-29); Chloride 106 mmol/L (98-107); Globulin 3.5 g/dL (2.4-3.5); Glucose 79 mg/dL (70-105); Potassium 4.1 mmol/L (3.5-5.1); Protein, Total 7.2 g/dL (6.0-8.3); Sodium 139 mmol/L (136-145)
[2021-12-22 22:58] LABS: #Eosinphils 0.1 thou/uL (0.0-0.7); #Lymphocytes 2.2 thou/uL (1.20-3.40); #Monocytes 0.4 thou/uL (0.11-0.59); #Neutrophils 2.4 thou/uL (1.40-6.50); %Basophils 0.6 % (0.0-1.0); %Eosinophils 1.7 % (0.0-10.0); %Lymphocytes 44.1 % (21.0-51.0); %Monocytes 7.1 % (0.0-10.0); %Neutrophils 46.5 % (42.0-75.0); MDiff Complete? YES; Microcytosis SLIGHT = 6-15 cells (100X) (0-5/hpf)
== END 2021-12-23 00:11 | disposition home or self-care (01) ==
LOC: ERS 21:21
DX: N83.202 Unspecified ovarian cyst, left side (principal); N83.201 Unspecified ovarian cyst, right side; K21.9 Gastro-esophageal reflux disease without esophagitis; F17.290 Nicotine dependence, other tobacco product, uncomplicated
CPT/HCPCS: 76856; 80053; 81003; 84703; 85025; 93976

== ENCOUNTER 2022-02-28 17:11 | Emergency (ER) | payer OTHER ==
[2022-02-28] MEDS ORDERED: Ondansetron PF 4 MG/2 ML Vial ONE ×2 (17:49→17:50)
[2022-02-28 18:03] LABS: #Lymphocytes 1.1 thou/uL (1.20-3.40); #Monocytes 0.4 thou/uL (0.11-0.59); #Neutrophils 4.5 thou/uL (1.40-6.50); %Basophils 0.2 % (0.0-1.0); %Eosinophils 0.5 % (0.0-10.0); %Lymphocytes 18.2 % (21.0-51.0); %Monocytes 7.3 % (0.0-10.0); %Neutrophils 73.8 % (42.0-75.0); Hemoglobin 8.3 g/dL (12.0-16.0); Mean Corpuscular HGB CONC 30.5 g/dL (32.0-36.0); Mean Corpuscular Volume 72.1 fL (78.0-98.0); Mean Platelet Volume 8.3 fL (7.4-10.4); Platelet Count 316 thou/uL (130-400); RBC Distribution Width 18.5 % (11.5-14.5); Red Blood Cell (RBC) Count 3.79 mill/uL (4.20-5.40)
[2022-02-28 18:15] LABS: Anisocytosis SLIGHT = 6-15 cells (100X) (0-5/hpf); Hypochromia SLIGHT = 6-15 cells (100X) (0-5/hpf); MDiff Complete? YES; Microcytosis SLIGHT = 6-15 cells (100X) (0-5/hpf); Ovalocytes SLIGHT = 2-5 cells (100X) (0-1/hpf); Platelet Morphology Comment Appears Adequate; Polychromasia SLIGHT = 2-3 cells (100X) (0-2/hpf)
[2022-02-28 18:25] LABS: ALT (SGPT) 19 U/L (8-55); AST (SGOT) 21 U/L (5-34); Albumin 3.8 g/dL (3.5-5.0); Alkaline Phosphatase 65 U/L (40-110); Anion Gap 14 mmol/L (10-20); BUN (Urea Nitrogen) 8 mg/dL (7.0-18.7); Bilirubin, Total 0.4 mg/dL (0.2-1.2); Calc. Creatinine Clearance 0 mL/min (70-130); Calcium 8.9 mg/dL (7.8-10.44); Carbon Dioxide 20 mmol/L (22-29); Chloride 105 mmol/L (98-107); Estimated GFR 122; Globulin 3.3 g/dL (2.4-3.5); Glucose 83 mg/dL (70-105); Potassium 4.1 mmol/L (3.5-5.1); Protein, Total 7.1 g/dL (6.0-8.3); Sodium 135 mmol/L (136-145)
[2022-02-28 19:28] LABS: SARS-CoV-2 NAA Rapid Test Not Detected (NotDetected)
== END 2022-02-28 20:35 | disposition home or self-care (01) ==
LOC: ERS 17:11
DX: O99.511 Diseases of the respiratory system complicating pregnancy, first trimester (principal); J02.9 Acute pharyngitis, unspecified; Z20.822 Contact with and (suspected) exposure to COVID-19; O99.611 Diseases of the digestive system complicating pregnancy, first trimester; K21.9 Gastro-esophageal reflux disease without esophagitis; O99.331 Smoking (tobacco) complicating pregnancy, first trimester; F17.290 Nicotine dependence, other tobacco product, uncomplicated; Z3A.11 11 weeks gestation of pregnancy
CPT/HCPCS: 80053; 85025; 87081; 87430; 87804; 96374; J2405; U0002